=== PATIENT | female | born 1985 | race Caucasian/White ===

== ENCOUNTER → 2016-11-26 | Outpatient (CLI) | payer OTHER ==
--- NOTE | 2016-11-26 14:45 | KCIC ---
PROCEDURE Second trimester OB ultrasound. HISTORY survey. TECHNIQUE Transabdominal 2nd trimester OB ultrasound was performed. COMPARISON None. FINDINGS There is a single live intrauterine measuring 16 weeks 6 days with CARLENE by ultrasound of May 07, 2017. Full survey closer to 20 weeks may be of benefit. Biparietal diameter measures 3.59 centimeters, 17 weeks 0 days. Head circumference measures 13.51 centimeters, 17 weeks 0 days. Abdominal circumference measures 11.08 centimeters, 16 weeks 6 days. Femur length measures 2.15 centimeters, 16 weeks 3 days. HC/AC ratio is 1.22. Estimated weight is 167 grams. Placenta is anterior. Amniotic fluid index is 11.6 centimeters. survey is limited given early 2nd trimester gestation. Maxillofacial region and intracranial contents are grossly unremarkable. Four-chamber heart is documented with heart tones 150 beats per minute. Outflow tracts were not able to be documented. Three-vessel cord is documented. Stomach, kidneys, and bladder are within normal limits. Extremities are probably within normal limits, evaluation limited. Spine is within normal limits. heart tones are 150 beats per minute. Cervical region is not well evaluated. Presentation is cephalic. IMPRESSION Normal 2nd trimester survey, although evaluation slightly limited given early 2nd trimester scan. A full survey closer to 20 weeks would be beneficial, with particular attention to the outflow tracts, maxillofacial region and the extremities. Electronically signed by: Tommy Ludwig MD (November 26, 2016 14:43:33)
== END | disposition home or self-care (01) ==
LOC: KCIC US 12:59
PROVIDERS: ATTEND Nurse Practitioner Women's Health
DX: Z34.82 Encounter for supervision of other normal pregnancy, second trimester (principal); Z3A.20 20 weeks gestation of pregnancy
CPT/HCPCS: 76805; 76817

== ENCOUNTER → 2016-12-26 | Outpatient (CLI) | payer OTHER ==
--- NOTE | 2016-12-26 14:07 | KCIC ---
OB F/U LTD ADDL GESTATION History: Supervision of normal Comparison: November 26, 2016 Findings: There is again single intrauterine fetus, breech presentation. There is anterior placenta. Amniotic fluid volume is within normal limits, estimated RHIANNON of 15.1 cm. Cervix measured 4.1 cm. Limited view of the midline nose and lips is submitted. 2 upper and lower extremities were reportedly visualized. There is limited visualization of a four-chamber view of the heart on this exam although was seen on previous exam. There are limited images demonstrating what is labeled as right ventricular and left ventricular outflow tracts. Remainder of the anatomy was not evaluated on this exam. Biometry data are as follows: Biparietal diameter 4.87 cm corresponds with 20 weeks 5 days Head circumference 18.77 cm corresponds with 21 weeks 1 day Abdominal circumference 14.71 cm corresponds with 20 weeks 0 days. Femur length 3.58 cm corresponds with 21 weeks 2 days. HC/AC ratio is somewhat elevated 1.28. Adjusted ultrasound age is 20 weeks 6 days with estimated delivery date of 05/09/2017. There has been adequate interval growth. LMP date is 21 weeks 1 day with estimated delivery date of 05/07/2017. Estimated weight 369 g +/- 55 g. Impression: 1. There has been adequate interval growth compared with the previous exam although elevation of the HC/AC ratio for which follow-up is advised to assess growth. There is breech presentation. Electronically signed by: Mohinder Noble MD (12/26/2016 2:03 PM)
== END | disposition home or self-care (01) ==
LOC: KCIC US 09:47
PROVIDERS: ATTEND Family Medicine
DX: O32.1XX0 Maternal care for breech presentation, not applicable or unspecified (principal); Z3A.20 20 weeks gestation of pregnancy
CPT/HCPCS: 76816

== ENCOUNTER → 2017-02-05 | Outpatient (CLI) | payer OTHER ==
--- NOTE | 2017-02-05 12:41 | KCIC ---
EXAM: Obstetrics sonogram. HISTORY: Increased head circumference to abdominal circumference ratio follow-up. TECHNIQUE: Sonographic imaging of the gravid uterus was performed. COMPARISON: 12/26/2016 and 11/26/2016. FINDINGS: There is a single intrauterine fetus in cephalic presentation with a heart rate of 149 bpm. body movement is seen. There is an anterior placenta without evidence of placenta previa. The amniotic fluid index is normal at 17.6 cm. The cervix measures 7.6 cm in length. The biparietal diameter is 6.52 cm, corresponding with 26 weeks and 2 days. The head circumference is 24.67 cm, corresponding with 26 weeks and 6 days. The abdominal circumference is 22.48 cm, corresponding with 26 weeks and 6 days. The femur length is 4.89 cm, corresponding with 26 weeks and 3 days. The estimated gestational age based on combined ultrasound measurements is 26 weeks and 4 days and the estimated weight is 970 g. This is at the 43rd percentile. The head circumference to abdominal circumference ratio is normal at 1.10. IMPRESSION: 1. Single intrauterine fetus in cephalic presentation with a heart rate of 149 bpm and estimated gestational age based on ultrasound measurements of 26 weeks and 4 days. 2. Normal head circumference to abdominal circumference ratio. Electronically signed by: Vannessa Bui MD (02/05/2017 12:38 PM) [place] [id number]
== END | disposition home or self-care (01) ==
LOC: KCIC US 10:55
PROVIDERS: ATTEND Family Medicine
DX: Z34.92 Encounter for supervision of normal pregnancy, unspecified, second trimester (principal); Z3A.26 26 weeks gestation of pregnancy
CPT/HCPCS: 76815

== ENCOUNTER 2017-04-30 12:18 | Observation (INO) | payer OTHER ==
[~2017-04-30] VITALS: Ht 162.6 cm; Wt 78.9 kg
[2017-04-30 13:07] LABS: BARBITURATES NEG (NEG); BENZODIAZEPINES NEG (NEG); CANNABINOIDS POS (NEG); COCAINE NEG (NEG); METHADONE NEG (NEG); OPIATES NEG (NEG); PHENCYCLIDINE NEG (NEG)
[2017-04-30] MEDS ORDERED: IV RINGERS,LACTATED 1000ML 1,000 ML IV SCH (13:30)
== END 2017-04-30 23:47 | disposition home or self-care (01) ==
LOC: 3 SO LND 12:18
PROVIDERS: ADMIT Family Medicine; ATTEND Family Medicine
DX: O62.9 Abnormality of forces of labor, unspecified (principal); O46.93 Antepartum hemorrhage, unspecified, third trimester; Z3A.39 39 weeks gestation of pregnancy
CPT/HCPCS: 80307; 96360; 96361; G0378; G0379; J7120; G0479